=== PATIENT | female | born 1985 | race Caucasian/White ===

== ENCOUNTER 2017-04-14 13:54 | Emergency (ER) | payer BC ==
[~2017-04-14] VITALS: Ht 160 cm; Wt 66.8 kg
[~2017-04-14 13:54] MED LIST: AMBIEN5 MG PO; ENDOCET 5-3251 EACH PO; FIORICET,ESG1 TABLET PO; IBUPROFEN800 MG PO; MULTIVITAMIN1 EAC2 PO; NIGHTTIME SLEEP25 M1 PO; PERCOCET 5/31 TABLET PO; PORTIA 28 DA1 TABLET PO; PRENATAL FORMU1 EAC3 PO; PRILOSEC OTC20 MG PO; PROZAC WEEKLY 990 MG PO; PROZAC20 MG PO; PROZAC40 MG PO; TRAZODONE HCL50 MG PO; TYLENOL REGULA325 MG PO; WELLBUTRIN SR150 MG PO; ZYRTEC10 M3 PO
[2017-04-14 14:15] LABS: HEMATOCRIT 41.2 % (36.0-46.0); HEMOGLOBIN 14.1 G/DL (11.9-15.5); MCH 29.3 PG (29.0-34.0); MCHC 34.2 G/DL (30.0-36.0); MCV 85.7 FL (83-99); PLATELET COUNT 269 K/uL (156-360); RBC DIS.WIDTH-CV 12.2 % (11.8-14.6); RBC DIS.WIDTH-SD 38.5 % (39-53); RED BLOOD COUNT 4.81 M/uL (3.80-5.20); WHITE BLOOD COUNT 10.1 K/uL (4.1-10.2)
[2017-04-14 14:23] LABS: CHLORIDE 104 mEq/L (99-109); POTASSIUM 3.8 mEq/L (3.7-5.4); SODIUM 139 mEq/L (136-147)
[2017-04-14 14:24] LABS: GLUCOSE 90 mg/dL (70-99)
[2017-04-14 14:28] LABS: CREATININE 0.8 mg/dL (0.6-1.3); GFR ESTIMATE (CALCULATED) > 59 mL/min/
[2017-04-14 14:29] LABS: UREA NITROGEN (BUN) 8 mg/dL (9-23)
[2017-04-14 15:56] LABS: APPEARANCE SL.HAZY ((CLEAR)); BILIRUBIN NEGATIVE; BLOOD NEGATIVE; COLOR YELLOW ((YELLOW)); GLUCOSE (STRIP) NEGATIVE; KETONES 20; LEUKOCYTES NEGATIVE; NITRITE NEGATIVE; PROTEIN (STRIP) 30; SPECIFIC GRAVITY 1.023 (1.000-1.030); UROBILINOGEN 0.2 MG/DL (0.2-1.0)
[2017-04-14 16:11] LABS: BACTERIA NONE SEEN /HPF; EPITHELIAL CELLS RARE /HPF; MUCUS 4+ /LPF; RED BLOOD CELLS NONE SEEN /HPF (0-5); UCUL ADDED? NO; WHITE BLOOD CELLS 0-5 /HPF (0-5)
[2017-04-14 18:06] LABS: QUANTITATIVE HCG 34920.2 MIU/ML
[2017-04-14] MEDS ORDERED: ZOFRAN4 MG PO (20:03)
[2017-04-14] MEDS ORDERED: PROMETHAZINE HC25 M1 PO (20:12)
[2017-04-14 20:13] VITALS: BP 114/64
== END 2017-04-14 20:13 | disposition home or self-care (01) ==
LOC: EME 13:54
DX: O26.891 Other specified pregnancy related conditions, first trimester (principal); R10.31 Right lower quadrant pain; Z3A.01 Less than 8 weeks gestation of pregnancy; O99.341 Other mental disorders complicating pregnancy, first trimester; F32.9 Major depressive disorder, single episode, unspecified
CPT/HCPCS: 76801; 80048; 81003; 84702; 85027; 99281; 99284

== ENCOUNTER 2017-04-28 17:37 | Emergency (ER) | payer BC ==
[~2017-04-28] VITALS: Ht 160 cm; Wt 68.3 kg
[~2017-04-28 17:37] MED LIST changes: +PROMETHAZINE HC25 M1 PO; +ZOFRAN4 MG PO
[2017-04-28 18:04] LABS: HEMATOCRIT 38.2 % (36.0-46.0); HEMOGLOBIN 13.2 G/DL (11.9-15.5); MCH 29.7 PG (29.0-34.0); MCHC 34.6 G/DL (30.0-36.0); MCV 85.8 FL (83-99); PLATELET COUNT 267 K/uL (156-360); RBC DIS.WIDTH-CV 12.3 % (11.8-14.6); RBC DIS.WIDTH-SD 38.2 % (39-53); RED BLOOD COUNT 4.45 M/uL (3.80-5.20)
[2017-04-28 18:23] LABS: ALBUMIN 4.2 g/dL (3.2-4.8); CHLORIDE 103 mEq/L (99-109); SODIUM 138 mEq/L (136-147)
[2017-04-28 18:25] LABS: GLUCOSE 97 mg/dL (70-99)
[2017-04-28 18:26] LABS: TOTAL PROTEIN 7.3 g/dL (6.4-8.3)
[2017-04-28 18:27] LABS: TOTAL BILIRUBIN 0.3 mg/dL (0.0-1.0)
[2017-04-28 18:29] LABS: ALKALINE PHOSPHATASE 79 IU/L (3-129); CREATININE 0.7 mg/dL (0.6-1.3); GFR ESTIMATE (CALCULATED) > 59 mL/min/
[2017-04-28 18:30] LABS: UREA NITROGEN (BUN) 10 mg/dL (9-23)
[2017-04-28 18:31] LABS: AST (GOT) 16 IU/L (2-34)
[2017-04-28 18:32] LABS: ALT (GPT) 21 IU/L (3-49)
[2017-04-28 19:10] LABS: QUANTITATIVE HCG 89532.7 MIU/ML
[2017-04-28 19:53] LABS: APPEARANCE SL.HAZY ((CLEAR)); BILIRUBIN NEGATIVE; BLOOD NEGATIVE; COLOR YELLOW ((YELLOW)); GLUCOSE (STRIP) NEGATIVE; KETONES 5; LEUKOCYTES NEGATIVE; NITRITE NEGATIVE; PROTEIN (STRIP) NEGATIVE; SPECIFIC GRAVITY 1.025 (1.000-1.030); UROBILINOGEN 0.2 MG/DL (0.2-1.0)
[2017-04-28 20:10] LABS: BACTERIA RARE /HPF; EPITHELIAL CELLS 1+ /HPF; MUCUS TRACE /LPF; RED BLOOD CELLS 0-5 /HPF (0-5); UCUL ADDED? NO; WHITE BLOOD CELLS 0-5 /HPF (0-5)
[2017-04-28] MEDS ORDERED: FLEXERIL10 MG PO (20:25)
[2017-04-28 20:37] VITALS: BP 135/90
== END 2017-04-28 20:38 | disposition home or self-care (01) ==
LOC: EME 17:37
DX: O26.891 Other specified pregnancy related conditions, first trimester (principal); M54.5 Low back pain; Z3A.08 8 weeks gestation of pregnancy
CPT/HCPCS: 76801; 80053; 81003; 84702; 85027; 99281; 99284